=== PATIENT | female | born 1970 | race Native Hawaiian/Other Pacific Islander ===

== ENCOUNTER 2017-05-09 11:14 | Emergency (ER) | payer BC ==
[~2017-05-09] VITALS: Ht 167.6 cm; Wt 70.3 kg
[2017-05-09 12:52] LABS: PLATELET COUNT 332 K/uL (152-353)
[2017-05-09 13:03] LABS: POTASSIUM 4.1 mmol/L (3.6-5.2); SODIUM 134 mmol/L (136-145)
[2017-05-09 13:37] VITALS: BP 118/74; TEMP 97.6
== END 2017-05-09 13:38 | disposition home or self-care (01) ==
LOC: ED 11:14
PROVIDERS: Internal Medicine
DX: N39.0 Urinary tract infection, site not specified (principal)
CPT/HCPCS: 80053; 81000; 85027; 87086; 87088; 96374; 99284; J1885